=== PATIENT | male | born 1980 | race Two or more races ===

== ENCOUNTER 2016-12-06 03:58 | Emergency (ER) | payer SELFPAY ==
[~2016-12-06] VITALS: Ht 175.3 cm; Wt 68.0 kg
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
[2016-12-06] MEDS ORDERED: ONDANSETRON HCL/PF - ER 4 MG/2 ML VIAL IV ONE (04:30)
[2016-12-06] MEDS ORDERED: HYDROMORPHONE INJ 2 MG/ML DISP.SYRIN IV ONE (04:30)
[2016-12-06] MEDS ORDERED: HYDROMORPHONE 1 MG/1 ML DISP.SYRIN ONE (04:40)
--- NOTE | 2016-12-06 04:40 | NUR ---
started a sl on the right hand g18.
[2016-12-06] MEDS ORDERED: IV NS 0.9% 500 ML IV ONE (04:41)
[2016-12-06] MEDS ORDERED: ONDANSETRON HCL/PF 4 MG/2 ML VIAL ONE (04:41)
[2016-12-06] MEDS ORDERED: IV SET PRIMARY 1 EA INFUS.SET MC ONE (04:41)
[2016-12-06] MEDS ORDERED: ETOMIDATE 2 MG/ML VIAL ONE (04:44)
--- NOTE | 2016-12-06 04:50 | NUR ---
Received order by Dr Resendez for IV bolus of 500cc NS noted.
--- NOTE | 2016-12-06 04:52 | NUR ---
medicated patient as ordered by Dr Resendez.
--- NOTE | 2016-12-06 05:02 | NUR ---
tech at bedside to xr right shoulder.
[2016-12-06] MEDS: ETOMIDATE 2 MG/ML VIAL IV ONE ×2 (05:13→06:06)
--- NOTE | 2016-12-06 05:25 | NUR ---
At 0513 Etomidate 5mg IVP was given per Dr Resendez order and Dr Resendez started close reduction procedure on the right shoulder under moderate sedation. RT, myself and EMT at bedside. Patient was with high flow O2 cannula saturating well at 98%, maintained patent airway, breathing even and unlabored. At 0518 another Etomidate 5mg IVP was given. At 0520 procedure was done. Patient vital signs remained stable. Cardiac and vital signs monitoring per protocol. At 0525 patient is awake but drowsy, oriented x2 (name and hospital).
--- NOTE | 2016-12-06 05:26 | NUR ---
Sling was placed on the right forearm to immobilize right shoulder. Patient is able to slightly move fingers on the right hand, warm to touch and cap refill <3 secs.
--- NOTE | 2016-12-06 05:28 | NUR ---
tech at bedside for xr on the right shoulder post closed reduction.
--- NOTE | 2016-12-06 05:40 | NUR ---
rt at bedside for conscience sedation pt placed on n/c 2l spo2 remained 99-100% throughout procedure nad 15 min post. pt alert and orientated
--- NOTE | 2016-12-06 05:49 | NUR ---
Dr Resendez at bedside for reeval.
--- NOTE | 2016-12-06 07:09 | NUR ---
IV removed. Catheter intact and site benign. Pressure and 4x4 applied to site. No bleeding noted. Patient discharged to home in stable condition. Written and verbal after care instructions given. Patient verbalizes understanding of instruction. ambulatory with a steady gait noted. pt aaox4 no acute distress noted, resp even and unlabored. advice pt not to drive or operate any machinery due to pt was given narcotic medicine. pt verbalize understanding. R shoulder immobilizer in place upon discharge.
[2016-12-06 07:12] VITALS: BP 116/62
== END 2016-12-06 07:13 | disposition home or self-care (01) ==
LOC: ER 04:04
DX: S43.001A Unspecified subluxation of right shoulder joint, initial encounter (principal); Z88.0 Allergy status to penicillin; Y08.89XA Assault by other specified means, initial encounter; Y93.89 Activity, other specified; Y92.89 Other specified places as the place of occurrence of the external cause; Y99.8 Other external cause status
CPT/HCPCS: 23650; 73030 ×2; 96374; 96375; 99152; 99285; A4606; J1170; J2405; J3490; J7040; Z7610

== ENCOUNTER 2017-03-09 01:50 | Emergency (ER) | payer OTHER ==
[~2017-03-09] VITALS: Ht 175.3 cm; Wt 70.3 kg
--- NOTE | 2017-03-09 02:04 | NUR ---
BIBRA 878 C/O RIGHT SHOULDER PAIN S/P SLIP AND FALL. PT DENIES KO RIGHT SHOULDER DEFORMITY NOTED. PT AOX4 RR EVEN AND UNLABORED. NO SOB NOTED. NO NVD AT THIS TIME. PT PLACED ON MONITOR WAITING FOR MD CLEMONS. 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
--- NOTE | 2017-03-09 02:04 | NUR ---
DR. LYNCH AT BEDSIDE FOR EVAL.
--- NOTE | 2017-03-09 02:13 | NUR ---
XRAY AT BEDSIDE
--- NOTE | 2017-03-09 02:22 | NUR ---
pt refused to provide urine. risk and benefits explained x3. pt strongly refused at this time. Patient does not wish to proceed with medical care recommended by Dr. Albert . Patient given information related to possible complications, up to and including , which could occur as a result of leaving the hospital at this time. Patient verbalizes understanding of risks involved due to leaving against medical advice. Patient has signed AMA form.
[2017-03-09 02:25] VITALS: BP 108/50
== END 2017-03-09 02:25 | disposition left against medical advice (07) ==
LOC: ER 01:52
DX: M25.511 Pain in right shoulder (principal); G40.909 Epilepsy, unspecified, not intractable, without status epilepticus; F31.9 Bipolar disorder, unspecified; Z88.0 Allergy status to penicillin
CPT/HCPCS: 73030; 99284; A4606; Z7610

== ENCOUNTER 2017-05-11 14:59 | Emergency (ER) | payer OTHER ==
[~2017-05-11] VITALS: Ht 170.2 cm; Wt 68.0 kg
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
[2017-05-11] MEDS ORDERED: ONDANSETRON HCL/PF 4 MG/2 ML VIAL ONE (15:44)
[2017-05-11] MEDS ORDERED: MORPHINE SULFATE INJ 4 MG/ML DISP.SYRIN ONE (15:44)
[2017-05-11 15:55] LABS: BASOPHILS % (AUTO) 0.5 % (0.0-2.0); EOSINOPHILS # (AUTO) 0.1 /CMM (0.0-0.7); EOSINOPHILS % (AUTO) 0.6 % (0.0-6.0); HEMATOCRIT 39 % (39-51); HEMOGLOBIN 12.7 g/dL (13.5-17.5); LYMPHOCYTES # (AUTO) 0.7 /CMM (0.8-4.8); LYMPHOCYTES % (AUTO) 7.8 % (20.0-44.0); MEAN CORPUSCULAR HEMOGLOBIN 27 PG (26.0-33.0); MEAN CORPUSCULAR HGB CONC 33 g/dl (31.0-36.0); MEAN CORPUSCULAR VOLUME 83 fL (80-96); MONOCYTES # (AUTO) 0.8 /CMM (0.1-1.30); MONOCYTES % (AUTO) 9.1 % (2.0-12.0); NEUTROPHILS # (AUTO) 7.2 /CMM (1.8-8.9); PLATELET COUNT (AUTO) 232 /CMM (150-450); RDW COEFFICIENT OF VARIATION 14.2 (11.5-15.0); RED BLOOD CELL COUNT(AUTO) 4.69 MIL/uL (4.5-6.0); WHITE BLOOD COUNT (AUTO) 8.8 K/uL (4.3-11.0)
[2017-05-11] MEDS ORDERED: CLINDAMYCIN 900 MG in IV D5W 100 ML IV ONE (16:00)
[2017-05-11] MEDS ORDERED: IV NS 0.9% 1,000 ML BAG IV ONE (16:00)
[2017-05-11] MEDS ORDERED: ONDANSETRON HCL/PF 4 MG/2 ML VIAL IVP ONE (16:00)
[2017-05-11] MEDS ORDERED: MORPHINE SULFATE INJ 2 MG/ML DISP.SYRIN IV ONE (16:00)
[2017-05-11 16:10] LABS: ALBUMIN 3.9 g/dL (3.4-5.0); BILIRUBIN,DIRECT 0.2 mg/dL (0.0-0.2); CALCIUM, SERUM 9.1 mg/dL (8.5-10.1); CREATININE 0.8 mg/dL (0.6-1.3); POTASSIUM 3.8 mmol/L (3.5-5.1); TOTAL PROTEIN, SERUM 7.4 g/dL (6.4-8.2)
--- NOTE | 2017-05-11 16:57 | NUR ---
IV removed. Catheter intact and site benign. Pressure and 4x4 applied to site. No bleeding noted.
--- NOTE | 2017-05-11 16:58 | NUR ---
Patient discharged to home in stable condition. Written and verbal after care instructions given. Patient verbalizes understanding of instruction.
[2017-05-11 16:59] VITALS: BP 125/85
== END 2017-05-11 17:15 | disposition home or self-care (01) ==
LOC: ER 15:00
DX: L02.416 Cutaneous abscess of left lower limb (principal); F15.10 Other stimulant abuse, uncomplicated; R74.8 Abnormal levels of other serum enzymes; F11.10 Opioid abuse, uncomplicated; G40.909 Epilepsy, unspecified, not intractable, without status epilepticus; F31.9 Bipolar disorder, unspecified; Z88.0 Allergy status to penicillin
CPT/HCPCS: 36415; 80048; 80076; 83690; 85025; 96365; 96375; 99284; A4606; J2270; J2405; J3490; J7030; J7060; Z7610

== ENCOUNTER 2017-05-17 00:34 | Emergency (ER) | payer OTHER ==
[~2017-05-17] VITALS: Ht 172.7 cm; Wt 72.6 kg
--- NOTE | 2017-05-17 00:58 | NUR ---
Called for triage, no one in WR. no answer.
[2017-05-17] MEDS ORDERED: VANCOMYCIN 1 GM in IV D5W 250 ML IV ONE (02:00)
--- NOTE | 2017-05-17 02:12 | NUR ---
pt with multiple abscess over L thigh s/t heroin injections, a/o x4, v/s stable, c/o pain 4/10 at injection sites, iv inserted, blood drawn, pt beeing monitored.
[2017-05-17 02:25] LABS: BASOPHILS # (AUTO) 0.1 /CMM (0.0-0.2); BASOPHILS % (AUTO) 0.8 % (0.0-2.0); EOSINOPHILS # (AUTO) 0.4 /CMM (0.0-0.7); EOSINOPHILS % (AUTO) 4.6 % (0.0-6.0); HEMATOCRIT 45 % (39-51); LYMPHOCYTES # (AUTO) 2.9 /CMM (0.8-4.8); LYMPHOCYTES % (AUTO) 34.2 % (20.0-44.0); MEAN CORPUSCULAR HEMOGLOBIN 28 PG (26.0-33.0); MEAN CORPUSCULAR HGB CONC 34 g/dl (31.0-36.0); MEAN CORPUSCULAR VOLUME 83 fL (80-96); MONOCYTES # (AUTO) 0.6 /CMM (0.1-1.30); MONOCYTES % (AUTO) 6.7 % (2.0-12.0); NEUTROPHILS # (AUTO) 4.5 /CMM (1.8-8.9); NEUTROPHILS % (AUTO) 53.7 % (43.0-81.0); PLATELET COUNT (AUTO) 274 /CMM (150-450); RDW COEFFICIENT OF VARIATION 15.1 (11.5-15.0); RED BLOOD CELL COUNT(AUTO) 5.41 MIL/uL (4.5-6.0); WHITE BLOOD COUNT (AUTO) 8.4 K/uL (4.3-11.0)
[2017-05-17] MEDS ORDERED: VANCOMYCIN 1 GM VIAL ONE (02:54)
[2017-05-17 03:06] LABS: CALCIUM, SERUM 8.7 mg/dL (8.5-10.1); CREATININE 0.7 mg/dL (0.6-1.3); POTASSIUM 3.7 mmol/L (3.5-5.1)
--- NOTE | 2017-05-17 03:12 | NUR ---
[facility] DR. YANELIS GALICIA.
--- NOTE | 2017-05-17 03:42 | NUR ---
TURNED ADMISSION PAPERWORK TO SILAS IN THE ADMITTING DEPT AND SHE STATED "PT'S INSURANCE IPA IS NOT THE KIND OF IPA WHERE THEY HAVE TO CALL FOR TRANSFER TO ANOTHER HOSPITAL AND SO PT CAN BE ADMITTED HERE". PANEL WAS CALLED AND PER DR. LYNCH "DR. HILARIO REFUSED TO ADMIT PT AND STATES PT SHOULD BE PLACED ON ORAL ANTIBIOTICS AND DISCHARGED HOME". JESSICA SNYDER NOTIFIED.
--- NOTE | 2017-05-17 04:18 | NUR ---
IV removed. Catheter intact and site benign. Pressure and 4x4 applied to site. No bleeding noted.Patient discharged to home in stable condition. Written and verbal after care instructions given. Patient verbalizes understanding of instruction. pt ambulatory with a steady gait.
[2017-05-17 04:20] VITALS: BP 117/64
== END 2017-05-17 04:20 | disposition home or self-care (01) ==
LOC: ER 00:44 → MED 03:33 → UNDOADMIN 03:33 → ER 04:20
DX: L03.116 Cellulitis of left lower limb (principal); L02.212 Cutaneous abscess of back [any part, except buttock and flank]; G40.909 Epilepsy, unspecified, not intractable, without status epilepticus; Z88.0 Allergy status to penicillin
CPT/HCPCS: 36415; 80048; 83605; 85025; 87040 ×2; 96365; 99284; A4606; J3370; Z7610

== ENCOUNTER 2017-06-01 00:01 | Emergency (ER) | payer OTHER ==
[~2017-06-01] VITALS: Ht 167.6 cm; Wt 63.5 kg
--- NOTE | 2017-06-01 00:10 | NUR ---
TO BED 7 A 37 YO MALE BIBSELF AND REPORTS OF "DISLOCATED RT SHOULDER." DISTAL CMS INTACT. VSS. NAD NOTED. NONDIAPHORETIC. COMFORT MEASURES RENDERED. AWAITING FOR ER MD CLEMONS.
--- NOTE | 2017-06-01 00:18 | NUR ---
xr at bedside.
--- NOTE | 2017-06-01 03:00 | NUR ---
STARTED A SALINE LOCK ON THE LEFT SHOULDER (NEAR AXILLARY) G22.
[2017-06-01 03:18] LABS: BASOPHILS # (AUTO) 0.1 /CMM (0.0-0.2); BASOPHILS % (AUTO) 1.5 % (0.0-2.0); EOSINOPHILS # (AUTO) 0.5 /CMM (0.0-0.7); EOSINOPHILS % (AUTO) 5.5 % (0.0-6.0); HEMATOCRIT 35 % (39-51); HEMOGLOBIN 11.5 g/dL (13.5-17.5); LYMPHOCYTES # (AUTO) 1.5 /CMM (0.8-4.8); LYMPHOCYTES % (AUTO) 17.8 % (20.0-44.0); MEAN CORPUSCULAR HEMOGLOBIN 28 PG (26.0-33.0); MEAN CORPUSCULAR HGB CONC 33 g/dl (31.0-36.0); MEAN CORPUSCULAR VOLUME 84 fL (80-96); MONOCYTES # (AUTO) 0.6 /CMM (0.1-1.30); MONOCYTES % (AUTO) 7.8 % (2.0-12.0); NEUTROPHILS # (AUTO) 5.6 /CMM (1.8-8.9); NEUTROPHILS % (AUTO) 67.4 % (43.0-81.0); PLATELET COUNT (AUTO) 253 /CMM (150-450); RDW COEFFICIENT OF VARIATION 15.2 (11.5-15.0); RED BLOOD CELL COUNT(AUTO) 4.19 MIL/uL (4.5-6.0); WHITE BLOOD COUNT (AUTO) 8.3 K/uL (4.3-11.0)
[2017-06-01 03:29] LABS: CALCIUM, SERUM 8.6 mg/dL (8.5-10.1); CREATININE 0.6 mg/dL (0.6-1.3); POTASSIUM 4.1 mmol/L (3.5-5.1)
[2017-06-01 03:36] LABS: INR 0.94 (0.87-1.13)
--- NOTE | 2017-06-01 03:57 | NUR ---
patient is sleeping at this time and does not want to be bothered. will continue to monitor.
--- NOTE | 2017-06-01 04:56 | NUR ---
Pt accepted to [facility] by Dr Alicia. Bed 241-a. # for report [phone]. Auth for transport [phone]
--- NOTE | 2017-06-01 04:59 | NUR ---
[facility] called for transport. ETA [id number]
--- NOTE | 2017-06-01 04:59 | NUR ---
PATIENT SLEEPING COMFORTABLY AT THIS TIME.
--- NOTE | 2017-06-01 05:07 | NUR ---
Report given to Denice ARTHUR at [facility] for transfer and rekha.
--- NOTE | 2017-06-01 06:50 | NUR ---
Report given to [facility] ski patrol officer for transfer and rekha.
[2017-06-01 06:51] VITALS: BP 108/59
== END 2017-06-01 06:55 | disposition short-term general hospital (02) ==
LOC: ER 00:04
DX: S43.024A Posterior dislocation of right humerus, initial encounter (principal); S42.211A Unspecified displaced fracture of surgical neck of right humerus, initial encounter for closed fracture; F15.10 Other stimulant abuse, uncomplicated; F11.10 Opioid abuse, uncomplicated; F19.10 Other psychoactive substance abuse, uncomplicated; G40.909 Epilepsy, unspecified, not intractable, without status epilepticus; F31.9 Bipolar disorder, unspecified; Z88.0 Allergy status to penicillin; X58.XXXA Exposure to other specified factors, initial encounter; Y93.89 Activity, other specified; Y92.89 Other specified places as the place of occurrence of the external cause; Y99.9 Unspecified external cause status
CPT/HCPCS: 36415; 71010; 73020; 73030; 80048; 80305; 85025; 85730; 93005; 99285; A4606; Z7610

== ENCOUNTER 2017-07-01 23:23 | Emergency (ER) | payer OTHER ==
[~2017-07-01] VITALS: Ht 175.3 cm; Wt 72.6 kg
[2017-07-01 23:26] VITALS: BP 105/60
== END 2017-07-01 23:55 | disposition home or self-care (01) ==
LOC: ER 23:26
DX: S43.084A Other dislocation of right shoulder joint, initial encounter (principal); G40.909 Epilepsy, unspecified, not intractable, without status epilepticus; F31.9 Bipolar disorder, unspecified; Z88.0 Allergy status to penicillin; X58.XXXA Exposure to other specified factors, initial encounter; Y93.89 Activity, other specified; Y92.89 Other specified places as the place of occurrence of the external cause; Y99.8 Other external cause status
CPT/HCPCS: 23650; 99284; A4606; Z7610

== ENCOUNTER 2017-07-19 02:01 | Emergency (ER) | payer OTHER ==
[~2017-07-19] VITALS: Ht 152.4 cm; Wt 63.5 kg
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
[2017-07-19 03:07] VITALS: BP 126/73
== END 2017-07-19 03:09 | disposition home or self-care (01) ==
LOC: ER 02:07
DX: M25.511 Pain in right shoulder (principal); M21.921 Unspecified acquired deformity of right upper arm; G40.909 Epilepsy, unspecified, not intractable, without status epilepticus; F31.9 Bipolar disorder, unspecified; Z88.0 Allergy status to penicillin
CPT/HCPCS: 73030-TC; A4606; Z7610

== ENCOUNTER 2017-07-20 01:04 | Emergency (ER) | payer OTHER ==
[~2017-07-20] VITALS: Ht 167.6 cm; Wt 65.8 kg
--- NOTE | 2017-07-20 02:05 | NUR ---
CALLED FOR ROOM ASSIGNMENT; NOT IN LOBBY
[2017-07-20 02:18] LABS: CALCIUM, SERUM 9.5 mg/dL (8.5-10.1); CARBON DIOXIDE 26 mmol/L (21-32); CHLORIDE 98 mmol/L (98-107); CREATININE 0.6 mg/dL (0.6-1.3); GLUCOSE 92 mg/dL (74-106); POTASSIUM 4.5 mmol/L (3.5-5.1); SODIUM SERUM 133 mmol/L (136-145); UREA NITROGEN, BLOOD 11 mg/dL (7-18)
[2017-07-20 02:24] LABS: ACETAMINOPHEN 0 ug/ml (10-30); ALANINE AMINOTRANSFERASE 32 U/L (12-78); ALCOHOL, BLOOD < 3 mg/dL (0-0); ALKALINE PHOSPHATASE 179 U/L (46-116); ASPARTATE AMINOTRANSFERASE 38 U/L (15-37); BILIRUBIN,TOTAL 0.4 mg/dL (0.2-1.0); SALICYLATE 2.6 mg/dL (2.8-20.0); TOTAL PROTEIN, SERUM 8.5 g/dL (6.4-8.2)
--- NOTE | 2017-07-20 02:24 | NUR ---
NOT IN LOBBY FOR ROOM ASSIGNMEN
[2017-07-20 03:39] LABS: APPEARANCE,URINE CLEAR (CLEAR); BILIRUBIN,URINE NEGATIVE (NEGATIVE); BLOOD, URINE NEGATIVE Ery/uL (NEGATIVE); COLOR,URINE YELLOW (YELLOW); KETONES,URINE NEGATIVE (NEGATIVE); LEUKOCYTE ESTERASE ,URINE NEGATIVE (NEGATIVE); NITRITE, URINE NEGATIVE (NEGATIVE); PROTEIN,URINE NEGATIVE (NEGATIVE); UGLUCOSE NEGATIVE (NEGATIVE); UROBILINOGEN,URINE 0.2 EU/dL (0.2)
[2017-07-20 04:43] VITALS: BP 120/74
== END 2017-07-20 04:44 | disposition home or self-care (01) ==
LOC: ER 01:05
DX: F11.10 Opioid abuse, uncomplicated (principal); F15.10 Other stimulant abuse, uncomplicated; F19.10 Other psychoactive substance abuse, uncomplicated; F31.9 Bipolar disorder, unspecified; G40.909 Epilepsy, unspecified, not intractable, without status epilepticus; F10.10 Alcohol abuse, uncomplicated; Z88.0 Allergy status to penicillin; Z98.890 Other specified postprocedural states
CPT/HCPCS: 36415; 80048-TC; 80076-TC; 80305; 81000-TC; A4606; G0480; Z7610

== ENCOUNTER 2017-08-20 06:03 | Emergency (ER) | payer OTHER ==
[~2017-08-20] VITALS: Ht 172.7 cm; Wt 56.7 kg
--- NOTE | 2017-08-20 06:08 | NUR ---
PT AMBULATORY TO ER BED 7, C/O CONSTIPATION X 4 DAYS. PT STATES HE IS A HEROIN ADDICT. VSS/RESP EVEN UNLABORED/NAD NOTED/SKIN WARM AND DRY/DENIES N-V/AOX4. AWAITING MD CLEMONS.
[2017-08-20 06:11] VITALS: BP 149/81
--- NOTE | 2017-08-20 06:12 | NUR ---
PT PLACED ON VS MONITOR.
== END 2017-08-20 06:41 | disposition home or self-care (01) ==
LOC: ER 06:05
DX: K59.00 Constipation, unspecified (principal); G40.909 Epilepsy, unspecified, not intractable, without status epilepticus; F17.210 Nicotine dependence, cigarettes, uncomplicated; F11.10 Opioid abuse, uncomplicated; F32.9 Major depressive disorder, single episode, unspecified; F15.10 Other stimulant abuse, uncomplicated; Z88.0 Allergy status to penicillin
CPT/HCPCS: 99281; 99406; A4606; Z7610; Z7502

== ENCOUNTER 2017-08-24 20:36 | Emergency (ER) | payer OTHER ==
[~2017-08-24] VITALS: Ht 175.3 cm; Wt 68.0 kg
--- NOTE | 2017-08-24 20:51 | NUR ---
pt to er bb ra for auditory hallucinations s/p using meth. no immediate signs of distress noted. pt vital signs stable. pt to er bed, changed into gown and connected to monitor. will cont to monitor pt.
[2017-08-24 21:44] LABS: BASOPHILS # (AUTO) 0.4 /CMM (0.0-0.2); BASOPHILS % (AUTO) 3.7 % (0.0-2.0); EOSINOPHILS # (AUTO) 0.2 /CMM (0.0-0.7); EOSINOPHILS % (AUTO) 1.5 % (0.0-6.0); HEMATOCRIT 41 % (39-51); HEMOGLOBIN 13.6 g/dL (13.5-17.5); LYMPHOCYTES # (AUTO) 2.3 /CMM (0.8-4.8); MEAN CORPUSCULAR HEMOGLOBIN 27 PG (26.0-33.0); MEAN CORPUSCULAR HGB CONC 33 g/dl (31.0-36.0); MEAN CORPUSCULAR VOLUME 82 fL (80-96); MONOCYTES # (AUTO) 0.8 /CMM (0.1-1.30); MONOCYTES % (AUTO) 6.6 % (2.0-12.0); NEUTROPHILS # (AUTO) 7.7 /CMM (1.8-8.9); NEUTROPHILS % (AUTO) 68.2 % (43.0-81.0); PLATELET COUNT (AUTO) 118 /CMM (150-450); RDW COEFFICIENT OF VARIATION 13.1 (11.5-15.0); RED BLOOD CELL COUNT(AUTO) 5.01 MIL/uL (4.5-6.0); WHITE BLOOD COUNT (AUTO) 11.4 K/uL (4.3-11.0)
[2017-08-24 22:06] LABS: CALCIUM, SERUM 9.9 mg/dL (8.5-10.1); CARBON DIOXIDE 25 mmol/L (21-32); CHLORIDE 104 mmol/L (98-107); CREATININE 0.7 mg/dL (0.6-1.3); GLUCOSE 100 mg/dL (74-106); SODIUM SERUM 139 mmol/L (136-145); UREA NITROGEN, BLOOD 8 mg/dL (7-18)
[2017-08-24 22:11] LABS: ALANINE AMINOTRANSFERASE 35 U/L (12-78); ALBUMIN 4.3 g/dL (3.4-5.0); ALCOHOL, BLOOD < 3 mg/dL (0-0); ALKALINE PHOSPHATASE 157 U/L (46-116); ASPARTATE AMINOTRANSFERASE 29 U/L (15-37); BAND % (MANUAL) 2 % (0.0-5.0); BILIRUBIN,DIRECT 0.1 mg/dL (0.0-0.2); BILIRUBIN,TOTAL 0.4 mg/dL (0.2-1.0); EOSINOPHILS % (MANUAL) 2 % (0-4); LYMPHOCYTES % (MANUAL) 20 % (16-48); MONOCYTES % (MANUAL) 6 % (0-11.0); NEUTROPHILS % (MANUAL) 70 (42-76); SALICYLATE 2.9 mg/dL (2.8-20.0); TOTAL PROTEIN, SERUM 8.5 g/dL (6.4-8.2)
[2017-08-24 22:13] LABS: ACETAMINOPHEN 0 ug/ml (10-30)
--- NOTE | 2017-08-25 | NUR ---
pt resting in gurney. no signs of distress noted. pt vital signs stable. tato cont to monitor pt.
[2017-08-25 00:22] LABS: APPEARANCE,URINE SL CLOUDY (CLEAR); BILIRUBIN,URINE NEGATIVE (NEGATIVE); BLOOD, URINE NEGATIVE Ery/uL (NEGATIVE); COLOR,URINE YELLOW (YELLOW); KETONES,URINE NEGATIVE (NEGATIVE); LEUKOCYTE ESTERASE ,URINE NEGATIVE (NEGATIVE); NITRITE, URINE NEGATIVE (NEGATIVE); PH,URINE 7.5 (5.0-8.0); PROTEIN,URINE NEGATIVE (NEGATIVE); UGLUCOSE NEGATIVE (NEGATIVE); UROBILINOGEN,URINE 0.2 EU/dL (0.2)
--- NOTE | 2017-08-25 07:15 | NUR ---
pt ok to discharge per dr winchester. pt denies si/hi. Patient discharged to home in stable condition. Written and verbal after care instructions given. Patient verbalizes understanding of instruction.Patient is awake and alert to self, day, and place. pt ambulatory with a steady gait
[2017-08-25 08:26] VITALS: BP 128/79
== END 2017-08-25 07:15 | disposition home or self-care (01) ==
LOC: ER 20:37
DX: F15.10 Other stimulant abuse, uncomplicated (principal); R45.851 Suicidal ideations; Z88.0 Allergy status to penicillin; F17.200 Nicotine dependence, unspecified, uncomplicated; Z60.2 Problems related to living alone
CPT/HCPCS: 36415; 80048; 80076; 80305; 80329; 81001; 85025; 99284; A4606; G0480 ×2; Z7610; 81000-TC

== ENCOUNTER 2017-09-22 03:17 | Emergency (ER) | payer OTHER ==
[~2017-09-22] VITALS: Ht 175.3 cm; Wt 72.6 kg
--- NOTE | 2017-09-22 06:14 | NUR ---
alyssa bolton at bedside to kye astudillo.
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
--- NOTE | 2017-09-22 06:21 | NUR ---
er md at bedside for r shoulder reduction. pt tolerating procedure at this time.
[2017-09-22] MEDS ORDERED: LIDOCAINE /MPF 1% VIAL 5 ML VIAL ONE (06:29)
[2017-09-22] MEDS ORDERED: LIDOCAINE /MPF 1% VIAL 5 ML VIAL TP ONE (06:30)
--- NOTE | 2017-09-22 07:13 | NUR ---
report given to am shift anmol john
--- NOTE | 2017-09-22 08:15 | NUR ---
CONSENT FOR RIGHT SHOULDER CLOSED REDUCTION UNDER MODERATE SEDATION SIGNED BY PT. VERBALIZES UNDERSTANDING OF THE PROCEDURE. ALL QUESTIONS ANSWERED.
[2017-09-22] MEDS ORDERED: PROPOFOL 40 ML IV ONE (08:19)
[2017-09-22] MEDS ORDERED: PROPOFOL 200 MG/20 ML VIAL IV ONE (08:30)
[2017-09-22] MEDS ORDERED: IV NS 0.9% 1,000 ML BAG IV ONE (08:30)
--- NOTE | 2017-09-22 08:36 | NUR ---
AT FOR UX GUIDED IV INSERTION.
[2017-09-22] MEDS ORDERED: KETOROLAC TROMETHAMINE INJ 30 MG/ML VIAL ONE (08:42)
[2017-09-22] MEDS ORDERED: KETOROLAC TROMETHAMINE INJ 30 MG/ML VIAL IV ONE (09:00)
--- NOTE | 2017-09-22 10:11 | NUR ---
Patient discharged to home in stable condition. Written and verbal after care instructions given. Patient verbalizes understanding of instruction.IV removed. Catheter intact and site benign. Pressure and 4x4 applied to site. No bleeding noted.
[2017-09-22 10:12] VITALS: BP 124/80
== END 2017-09-22 10:13 | disposition home or self-care (01) ==
LOC: ER 03:19
DX: S43.004A Unspecified dislocation of right shoulder joint, initial encounter (principal); F11.20 Opioid dependence, uncomplicated; Q89.8 Other specified congenital malformations; F10.10 Alcohol abuse, uncomplicated; F17.200 Nicotine dependence, unspecified, uncomplicated; F15.10 Other stimulant abuse, uncomplicated; Z88.0 Allergy status to penicillin; X58.XXXA Exposure to other specified factors, initial encounter; Y93.89 Activity, other specified; Y92.89 Other specified places as the place of occurrence of the external cause; Y99.8 Other external cause status
CPT/HCPCS: 23650; 36569; 73030; 96361; 96374; 99152; 99285; 99406; A4606; J1885; J2704; J3490; J7040; Z7610

== ENCOUNTER 2017-10-20 21:34 | Emergency (ER) | payer OTHER ==
[~2017-10-20] VITALS: Ht 175.3 cm; Wt 68.0 kg
[2017-10-20 21:42] VITALS: BP 140/110
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
--- NOTE | 2017-10-20 23:34 | NUR ---
PT MOVED TO ER BED 5 TO SET UP FOR MODERATE SEDATION FOR R SHOULDER REDUCTION. PT SIGNED INFORMED CONSENT FORM.
--- NOTE | 2017-10-20 23:39 | NUR ---
NURSE OBSERVED SYRINGE WITH WHAT PT STATED WAS "HEROINE". PT WAS TOLD TO DISCARD SYRINGE, RISK AND BENEFITS EXPLAINED. PT BECAME VERBALLY AGGRESSIVE AND REFUSED TO DISCARD SYRINGE. AWARE. PT STATES "I AM LEAVING, WILL TAKE MY DRUGS AND GO TO ANOTHER HOSPITAL". Patient does not wish to proceed with medical care recommended by Dr. Stapleton. Patient given information related to possible complications, up to and including , which could occur as a result of leaving the hospital at this time. Patient verbalizes understanding of risks involved due to leaving against medical advice. Patient refused to signed AMA form, aware. PT ESCORTED OUT TO LOBBY PER SECURITY.
== END 2017-10-20 23:51 | disposition left against medical advice (07) ==
LOC: ER 21:36
DX: S43.004A Unspecified dislocation of right shoulder joint, initial encounter (principal); Q89.8 Other specified congenital malformations; S42.291A Other displaced fracture of upper end of right humerus, initial encounter for closed fracture; F10.10 Alcohol abuse, uncomplicated; F17.200 Nicotine dependence, unspecified, uncomplicated; F15.10 Other stimulant abuse, uncomplicated; F11.10 Opioid abuse, uncomplicated; Z60.2 Problems related to living alone; Z53.20 Procedure and treatment not carried out because of patient's decision for unspecified reasons; Z88.0 Allergy status to penicillin; W01.0XXA Fall on same level from slipping, tripping and stumbling without subsequent striking against object, initial encounter; Y93.89 Activity, other specified; Y92.89 Other specified places as the place of occurrence of the external cause; Y99.8 Other external cause status
CPT/HCPCS: 73030-TC; A4606; J7030; Z7610

== ENCOUNTER 2017-10-26 00:54 | Emergency (ER) | payer OTHER ==
[~2017-10-26] VITALS: Ht 172.7 cm; Wt 59.0 kg
[2017-10-26 00:54] VITALS: BP 123/80
--- NOTE | 2017-10-26 01:00 | NUR ---
PT WAS TOLD TO GO TO THE WAITING ROOM BECAUSE THERE WAS NO BED AVAILBLE FOR HIM INSIDE, PATIENT ADVISED HIS POCKETS WOULD BE SEARCHED PRIOR TO COMING IN, LAST TIME PATIENT WAS HERE HE HAD 3 HEROINE NEEDLES ON HIM AND NURSE WAS ALMOST STUCK, SECURITY AND MD MADE AWARE
--- NOTE | 2017-10-26 01:30 | NUR ---
CALLED IN LOBBY NO ANSWER
--- NOTE | 2017-10-26 02:45 | NUR ---
CALLED FOR PT IN WR. NO RESPONSE.
--- NOTE | 2017-10-26 02:50 | NUR ---
ADVISED BY ADMITTING STAFF PATIENT LEFT
== END 2017-10-26 03:48 | disposition left against medical advice (07) ==
LOC: ER 00:56
DX: Z53.21 Procedure and treatment not carried out due to patient leaving prior to being seen by health care provider (principal)
CPT/HCPCS: A4606; Z7610

== ENCOUNTER 2017-11-02 23:09 | Emergency (ER) | payer OTHER ==
[~2017-11-02] VITALS: Ht 177.8 cm; Wt 59.0 kg
[2017-11-02 23:09] VITALS: BP 137/86
== END 2017-11-03 00:19 | disposition left against medical advice (07) ==
LOC: ER 23:10
DX: Z53.21 Procedure and treatment not carried out due to patient leaving prior to being seen by health care provider (principal)
CPT/HCPCS: A4606; Z7610

== ENCOUNTER 2017-11-12 03:50 | Emergency (ER) | payer OTHER | END 2017-11-12 05:14 | disposition left against medical advice (07) | LOC: ER 03:51 | DX: Z53.21 Procedure and treatment not carried out due to patient leaving prior to being seen by health care provider (principal) ==

== ENCOUNTER 2017-11-14 02:12 | Emergency (ER) | payer OTHER ==
[~2017-11-14] VITALS: Ht 172.7 cm; Wt 65.8 kg
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
--- NOTE | 2017-11-14 05:13 | NUR ---
PT ASLEEP, NO ACUTE DISTRESS NOTED, RESP EVEN AND UNLABORED. NO PAIN OR DISCOMFORT NOTED. CALL LIGHT WITHIN REACH.
--- NOTE | 2017-11-14 05:31 | NUR ---
Patient discharged to home in stable condition. Written and verbal after care instructions given. Patient verbalizes understanding of instruction. ambulatory with a steady gait. instructed pt not to drive. pt verbalizes understanding.
[2017-11-14 05:33] VITALS: BP 122/59
== END 2017-11-14 05:33 | disposition home or self-care (01) ==
LOC: ER 02:17
DX: F11.10 Opioid abuse, uncomplicated (principal); G89.29 Other chronic pain; F17.200 Nicotine dependence, unspecified, uncomplicated; Z88.0 Allergy status to penicillin
CPT/HCPCS: A4606; Z7610

== ENCOUNTER 2018-01-03 20:29 | Emergency (ER) | payer OTHER ==
[~2018-01-03] VITALS: Ht 154.9 cm; Wt 59.9 kg
--- NOTE | 2018-01-03 21:24 | NUR ---
URINE SAMPLE OBTAINED.
[2018-01-03 21:51] LABS: APPEARANCE,URINE CLEAR (CLEAR); BILIRUBIN,URINE NEGATIVE (NEGATIVE); BLOOD, URINE NEGATIVE Ery/uL (NEGATIVE); COLOR,URINE YELLOW (YELLOW); KETONES,URINE 1+ (NEGATIVE); LEUKOCYTE ESTERASE ,URINE NEGATIVE (NEGATIVE); NITRITE, URINE NEGATIVE (NEGATIVE); PROTEIN,URINE NEGATIVE (NEGATIVE); UGLUCOSE NEGATIVE (NEGATIVE); UROBILINOGEN,URINE 0.2 EU/dL (0.2)
[2018-01-03 22:18] LABS: BACTERIA,URINE Rare /HPF (None Seen); RBC,URINE 0-2 /HPF (0-2); SQUAMOUS EPITHELIAL CELL,UR Rare /HPF (None Seen); WBC,URINE NONE SEEN /HPF (0-3)
--- NOTE | 2018-01-03 22:22 | NUR ---
DR STARR IS AT THE BEDSIDE SPEAKING TO THE PT.
[2018-01-03 22:35] VITALS: BP 107/57
[2018-01-03 22:39] LABS: BASOPHILS % (AUTO) 0.4 % (0.0-2.0); EOSINOPHILS % (AUTO) 1.9 % (0.0-6.0); HEMATOCRIT 38 % (39-51); HEMOGLOBIN 12.9 g/dL (13.5-17.5); LYMPHOCYTES # (AUTO) 1.5 /CMM (0.8-4.8); LYMPHOCYTES % (AUTO) 16.4 % (20.0-44.0); MEAN CORPUSCULAR HGB CONC 34 g/dl (31.0-36.0); MEAN CORPUSCULAR VOLUME 80 fL (80-96); MONOCYTES # (AUTO) 0.7 /CMM (0.1-1.30); NEUTROPHILS # (AUTO) 6.7 /CMM (1.8-8.9); NEUTROPHILS % (AUTO) 73.3 % (43.0-81.0); PLATELET COUNT (AUTO) 299 /CMM (150-450); RDW COEFFICIENT OF VARIATION 12.9 (11.5-15.0); RED BLOOD CELL COUNT(AUTO) 4.79 MIL/uL (4.5-6.0); WHITE BLOOD COUNT (AUTO) 9.1 K/uL (4.3-11.0)
[2018-01-03 22:58] LABS: CALCIUM, SERUM 9.1 mg/dL (8.5-10.1); CARBON DIOXIDE 25 mmol/L (21-32); CHLORIDE 103 mmol/L (98-107); CREATININE 0.7 mg/dL (0.6-1.3); GLUCOSE 99 mg/dL (74-106); POTASSIUM 3.6 mmol/L (3.5-5.1); SODIUM SERUM 139 mmol/L (136-145); UREA NITROGEN, BLOOD 7 mg/dL (7-18)
[2018-01-03] MEDS ORDERED: BLOOD SUGAR DIAGNOSTIC 1 EACH STRIP IN ONE (23:00)
[2018-01-03] MEDS ORDERED: IV NS 0.9% 1,000 ML BAG IV ONE (23:00)
[2018-01-03 23:04] LABS: ACETAMINOPHEN 2 ug/ml (10-30); ALANINE AMINOTRANSFERASE 45 U/L (12-78); ALBUMIN 3.5 g/dL (3.4-5.0); ALCOHOL, BLOOD < 3 mg/dL (0-0); ALKALINE PHOSPHATASE 164 U/L (46-116); ASPARTATE AMINOTRANSFERASE 29 U/L (15-37); BILIRUBIN,DIRECT 0.1 mg/dL (0.0-0.2); BILIRUBIN,TOTAL 0.4 mg/dL (0.2-1.0); TOTAL PROTEIN, SERUM 8.1 g/dL (6.4-8.2)
[2018-01-03 23:05] LABS: SALICYLATE 2.6 mg/dL (2.8-20.0)
--- NOTE | 2018-01-03 23:26 | NUR ---
PT APPEARS TO BE RESTING COMFORTABLY. PT IS ON THE MONITOR AND CONTINUOUS PULSE OX. RESP EVEN AND UNLABORED.
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
== END 2018-01-04 00:44 | disposition left against medical advice (07) ==
LOC: ER 20:30
DX: R45.851 Suicidal ideations (principal); F10.10 Alcohol abuse, uncomplicated; F12.10 Cannabis abuse, uncomplicated; F15.10 Other stimulant abuse, uncomplicated; F11.10 Opioid abuse, uncomplicated; F17.200 Nicotine dependence, unspecified, uncomplicated; Z60.2 Problems related to living alone; Z88.0 Allergy status to penicillin
CPT/HCPCS: 36415; 80048-TC; 80076-TC; 80305; 81000-TC; 82962-TC; 85025-TC; A4606; G0480; Z7610

== ENCOUNTER 2018-01-16 01:29 | Emergency (ER) | payer OTHER ==
--- NOTE | 2018-01-16 01:35 | NUR ---
CALLED PT NAME X 3 IN WR. NO RESPONSE.
--- NOTE | 2018-01-16 01:53 | NUR ---
CALLED PT NAME X 3 IN WR. NO RESPONSE.
--- NOTE | 2018-01-16 02:28 | NUR ---
CALLED PT NAME X3 IN WR. NO RESPONSE. PER ADMITTING PT LEFT.
== END 2018-01-16 02:31 | disposition left against medical advice (07) ==
LOC: ER 01:32
DX: Z53.21 Procedure and treatment not carried out due to patient leaving prior to being seen by health care provider (principal)

== ENCOUNTER 2018-02-01 01:10 | Emergency (ER) | payer OTHER ==
--- NOTE | 2018-02-01 01:30 | NUR ---
CHECKED LOBBY AND BATHROOM; CANT FIND PT
--- NOTE | 2018-02-01 02:00 | NUR ---
NOT IN LOBBY STILL FOR TRIAGE
--- NOTE | 2018-02-01 02:29 | NUR ---
CHECKED LOBBY AND BATHROOM AND PT NOT ANYWHERE
--- NOTE | 2018-02-01 03:11 | NUR ---
INFORMED BY ADMITTING "PT HAS NOT RETURNED TO LOBBY"; NOT EVEN OUTSIDE OF ER
== END 2018-02-01 03:13 | disposition left against medical advice (07) ==
LOC: ER 01:14
DX: Z53.21 Procedure and treatment not carried out due to patient leaving prior to being seen by health care provider (principal)

== ENCOUNTER 2018-03-06 11:49 | Emergency (ER) | payer OTHER ==
[~2018-03-06] VITALS: Ht 172.7 cm; Wt 84.4 kg
[2018-03-06] MEDS ORDERED: PROPOFOL 20 ML IV ONE (12:24)
[2018-03-06] MEDS ORDERED: PROPOFOL 200 MG/20 ML VIAL IV ONE (12:30)
--- NOTE | 2018-03-06 12:57 | NUR ---
IN CUSTODY. OK TO BOOK. R SHOULDER DISLOCATION, NAD NOTED, VSS, RESP EVEN AND UNLABORED, PT WAS PUT MONITOR. AT BS
--- NOTE | 2018-03-06 13:03 | NUR ---
XRAY AT BS
--- NOTE | 2018-03-06 13:44 | NUR ---
PT MEDICALLY CLEARED [employer] UNIT [id number]
[2018-03-06 13:46] VITALS: BP 129/75
== END 2018-03-06 13:48 ==
LOC: ER 11:57
DX: M24.411 Recurrent dislocation, right shoulder (principal); R56.9 Unspecified convulsions; F17.200 Nicotine dependence, unspecified, uncomplicated; F10.10 Alcohol abuse, uncomplicated; F15.10 Other stimulant abuse, uncomplicated; F11.10 Opioid abuse, uncomplicated; W18.39XA Other fall on same level, initial encounter; Z88.0 Allergy status to penicillin; Y93.89 Activity, other specified; Y92.89 Other specified places as the place of occurrence of the external cause; Y99.8 Other external cause status
CPT/HCPCS: 23650; 73030; 99152; 99285; A4606; J2704; J7030; Z7610

== ENCOUNTER 2018-04-02 14:37 | Emergency (ER) | payer OTHER ==
[~2018-04-02] VITALS: Ht 175.3 cm; Wt 76.2 kg
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
--- NOTE | 2018-04-02 14:46 | NUR ---
PT IS ALSO C/O BILATERAL SHOULDER PAIN
[2018-04-02] MEDS ORDERED: LEVETIRACETAM (500MG) 500 MG in IV NS 0.9% 100 ML IV ONE (15:00)
--- NOTE | 2018-04-02 15:30 | NUR ---
RUE 20G IV STARTED WITH VEIN FINDER BY SANDHYA PINEDA/CHG .
--- NOTE | 2018-04-02 15:37 | NUR ---
PT LEFT FOR CT VIA GURNEY WITH SHERIFF Thomas.
[2018-04-02 15:40] LABS: BASOPHILS # (AUTO) 0.1 /CMM (0.0-0.2); BASOPHILS % (AUTO) 1.7 % (0.0-2.0); EOSINOPHILS % (AUTO) 2.8 % (0.0-6.0); HEMATOCRIT 43 % (39-51); HEMOGLOBIN 14.5 g/dL (13.5-17.5); LYMPHOCYTES # (AUTO) 1.7 /CMM (0.8-4.8); LYMPHOCYTES % (AUTO) 28.8 % (20.0-44.0); MEAN CORPUSCULAR HEMOGLOBIN 28 PG (26.0-33.0); MEAN CORPUSCULAR HGB CONC 34 g/dl (31.0-36.0); MEAN CORPUSCULAR VOLUME 83 fL (80-96); MONOCYTES # (AUTO) 0.6 /CMM (0.1-1.30); MONOCYTES % (AUTO) 10.5 % (2.0-12.0); NEUTROPHILS # (AUTO) 3.5 /CMM (1.8-8.9); NEUTROPHILS % (AUTO) 56.2 % (43.0-81.0); PLATELET COUNT (AUTO) 182 /CMM (150-450); RDW COEFFICIENT OF VARIATION 16.9 (11.5-15.0); RED BLOOD CELL COUNT(AUTO) 5.16 MIL/uL (4.5-6.0); WHITE BLOOD COUNT (AUTO) 6.1 K/uL (4.3-11.0)
[2018-04-02 15:54] LABS: INR 0.94 (0.85-1.15)
--- NOTE | 2018-04-02 16:00 | NUR ---
PT RETURNED FROM CT.
--- NOTE | 2018-04-02 16:05 | NUR ---
RELIEF PHARMACIST IS AT THE BEDSIDE FOR BLOOD RE-DRAW.
[2018-04-02] MEDS ORDERED: PROPOFOL 1,000 MG/100 ML BOTTLE IV ONE (17:00)
[2018-04-02] MEDS ORDERED: IV NS 0.9% 1,000 ML BAG IV ONE (17:00)
[2018-04-02] MEDS ORDERED: PROPOFOL 20 ML IV ONE ×2 (17:02→17:23)
--- NOTE | 2018-04-02 17:15 | NUR ---
Jordon vail in ED - 04/02/18 at 2003 by ZANDRA REPORT GIVEN TO SANDHYA HOWARD FOR ROZINA.
--- NOTE | 2018-04-02 17:18 | NUR ---
CONSENT SIGNED FOR BILATERAL SHOULDER CLOSED REDUCTION UNDER MODERATE SEDATION. 1718 - 1L NS INFUSING INTO RUE 20G IV. 1720 - TIME OUT 1725 - 70MG PROPOFOL IVP VIA 20G RUE BY EDWIN, RN BP121/76, HR 99, O2 SAT 100% PT ON NRB MASK SANDHYA PINEDA - RT, DR STARR, MYSELF, SHELL EMT - AT THE BEDSIDE. 1727 - 35MG PROPOFOL IVP VIA 20G RUE - PT NOT SEDATED 1729 - 35MG PROPOFOL IVP VIA 20G RUE- DR STARR REDUCTION IN PROGRESS BP 108/70, HR 97, SAT 100%, RESP 18 1731 - 35MG PROPOFOL IVP GIVEN VIA 20G RUE - BP 108/70, HR 90, O2 SAT 100% 1733 - BP IS 72/33, HR 90, O2 SAT ON NRB MASK 99%. NS RUNNING. HOLDING REDUCTION PT IS STILL AWAKE. 1734 - BP 85/64, HR 88, O2 SAT 98%, PT IS STILL TALKING, NOT SEDATED HOLDING REDUCTION 1737 - BP 94/62 HR 90, 02 SAT 100%. 1743 - BP 103/63, HR 96, RESP 18, 100% O2 ON NRB 1743 - 0.14MG KETAMINE IVP GIVEN RUE 20G 1744 - REDUCING LT SHOULD STOPPED. PT TOO AWAKE 1745 REDUCUTION IN PROGRESS BY DR. STARR - HR 110, BP 103/63, O2 SAT 99% ON NRB 1746 - 0.07ML = 3.5MG KETAMINE IVP VIA RUE 20G. BP 121/71 HR 96, O2 SAT 100% ON NRB, RESP 16 174 - REDUCTION STILL IN PROGRESS. 174 - REDUCTION STOPPED PT IS TOO AWAKE. 174 - RESUMED REDUCTION - L SHOULDER REDUCED AND SLINT IN PLACE 174 - KETAMINE 3.5MG GIVEN VIA 20G RUE IVP -- BP121/71, HR 98, RESP 18, O2 SAT 100% 175 - RT SHOULDER REDUCTION IN PROGRESS HR 111, BP 121/71, RESP 18, O2 SAT 100% ON NRB MASK 175 - KETAMINE 3.5MG IVP VIA 20G RUE. BP 118/96, HR 104, RESP 18, 98% ON NRB MASK REDUCTION STOPPED - 20G RUE IV INFILTRATED. IV REMOVED. 1800 15G IO INSERTED BY DR STARR IN THE RT TIB, + BLOOD RETURN NOTED 1801 - FLUSHED WITH 1MG 2% LIDOCAINE BY DR. STARR BP 137/98, HR 110, RESP 20, O2 SAT 100% NRB MASK 180- FENTANYL 50MCG IVP VIA 15G IO RT TIB 180- HOLDING REDUCTION - PT TOO ALERT/AWAKE 180- BP 146/89, HR 114, RESP 20, O2 SAT 100% ON NRB MASK 180 - ETOMIDATE 7MG, VIA IO RT TIB 180 - FENTANYL 50 MCG IVP VIA IO RT TIB GIVEN BY SANDHYA PINEDA 181 - 7MG ETOMIDATE IVP VIA IO RT TIB. 181 - REDUCTION IN PROGRESS OF RT SHOULDER 181 BP 134/98 HR 118, RESP 20 O2 SAT VIA NRB 99% 181 - STILL REDUCING RT SHOULDER 181- HOLD REDUCTION- PT IS RESISITING, TOO AWAKE. 184 REDUCTION OF RT SHOULD RESUMED 184 - KETAMINE 7MG VIA 10 RT TIB GIVEN BY SANDHYA PINEDA HR 123, BP 126/81, RESP 20, O2 SAT 99% ON NRB 184 RT SHOULDER REDUCED AND SLING APPLIED 1845 - LT SHOULDER POPPED OUT, REDUCTION OF LEFT SHOULDER IN PROGRESS, LT SHOULDER REDUCED AND SLING APPLIED. 1846 - HR 121, BP 126/81, RESP 18, O2 SAT 99% ON NRB MASK 1846 - RT SHOULDER POPPED OUT, REDUCING RT SHOULDER 1847 - RT SHOULDER REDUCED AND SLING APPLIED. 1848 - PT AT BASELINE HR 125, BP 126/81 RESP 18, O2 SAT 100% ON 2L VIA NC. PT IS AA&O X4. PLEASE SEE DR'S ORDER FORM FOR ALL MODERATE SEDATION MEDICATIONS
[2018-04-02] MEDS ORDERED: PROPOFOL 0 ML ONE (17:21)
[2018-04-02] MEDS ORDERED: KETAMINE HCL (500MG/10ML) 50 MG/ML VIAL ONE (17:33)
[2018-04-02] MEDS ORDERED: FENTANYL PF 100MCG/2ML AMPUL ONE (17:56)
[2018-04-02] MEDS ORDERED: LIDOCAINE 2% 20 ML MDV ONE (17:58)
[2018-04-02] MEDS ORDERED: ETOMIDATE 2 MG/ML VIAL ONE (18:05)
--- NOTE | 2018-04-02 18:38 | NUR ---
SEE DR'S ORDER SHEET FOR ORDER.
--- NOTE | 2018-04-02 18:38 | NUR ---
2ND LITER NS INFUSING VIA IO 15G RT TIB
--- NOTE | 2018-04-02 18:48 | NUR ---
BILATERAL SHOULDERS REDUCED AND PT BACK AT BASELINE. IS AWARE. VSS.
--- NOTE | 2018-04-02 18:50 | NUR ---
PT IS AA7O X4. RESP EVEN AND UNLABORED. NO S/S OF PAIN OR DISTRESS NOTED. VSS.
--- NOTE | 2018-04-02 19:15 | NUR ---
REPORT GIVEN TO SANDHYA HOWARD FOR ROZINA.
--- NOTE | 2018-04-02 20:30 | NUR ---
Patient discharged to home in stable condition. Written and verbal after care instructions given. Patient verbalizes understanding of instruction. PT AMBULATORY UPON DC WITH STEADY GAIT. PT IN CUSTODY.
[2018-04-02 20:31] VITALS: BP 148/80
== END 2018-04-02 20:32 ==
LOC: ER 14:39
DX: S43.015A Anterior dislocation of left humerus, initial encounter (principal); S43.014A Anterior dislocation of right humerus, initial encounter; G40.909 Epilepsy, unspecified, not intractable, without status epilepticus; F10.10 Alcohol abuse, uncomplicated; F17.200 Nicotine dependence, unspecified, uncomplicated; F15.10 Other stimulant abuse, uncomplicated; R79.89 Other specified abnormal findings of blood chemistry; Z88.0 Allergy status to penicillin; Z60.2 Problems related to living alone; Y90.9 Presence of alcohol in blood, level not specified; W18.30XA Fall on same level, unspecified, initial encounter; Y93.89 Activity, other specified; Y92.89 Other specified places as the place of occurrence of the external cause; Y99.8 Other external cause status
CPT/HCPCS: 23650; 36415; 36680; 70450; 72125; 73030 ×4; 82962; 85025; 85730; 93005; 96361; 96365; 99152; 99285; A4606; J1953; J2704 ×2; J3010; J3490 ×3; J7030 ×3; Z7610

== ENCOUNTER 2018-12-22 12:22 | Emergency (ER) | payer OTHER ==
[~2018-12-22] VITALS: Ht 175.3 cm; Wt 77.1 kg
--- NOTE | 2018-12-22 12:30 | NUR ---
PT RECEIVED WITH RIGHT ARM DISSLOCATION, REPORTS HAPPENED THIS AM WHEN STRETCHING. HAS HAPPENDED MULTIPLE PREVIOUS TIME. PT WITH .
[2018-12-22] MEDS ORDERED: ETOMIDATE 2 MG/ML VIAL ONE ×2 (12:46→13:02)
[2018-12-22] MEDS ORDERED: ETOMIDATE 2 MG/ML VIAL IV ONE (13:00)
[2018-12-22] MEDS ORDERED: IV NS 0.9% 1,000 ML BAG IV ONE (13:00)
--- NOTE | 2018-12-22 13:30 | NUR ---
PT WITH RT, RNX3, EMT AND MDX2 PRESENT FOR MODERATE SEDATION AND SHOULDER RELOCATION. PROCEDURE WITHOUT INCIDENT AND PT RETURNED TO BASELINE. PT REQUESTING TO CALL SISTER FOR D/C TRANSPORT.
--- NOTE | 2018-12-22 14:00 | NUR ---
PT PREPAPRED FOR D/C PER MD. PT VITALS WNL, RIGHT ARM WITH SLING AND CMS INTACT. PT IVC REMOVED BY FIBERGLASS CONTAINER WINDING OPERATOR GENNER. PT REQUESTING TO LEAVE KEELEY TO WAITING ROOM TO WAIT FOR SISTER FOR TRANSPORT.
[2018-12-22 14:05] VITALS: BP 130/85
== END 2018-12-22 14:06 | disposition home or self-care (01) ==
LOC: ER 12:25
DX: S43.084A Other dislocation of right shoulder joint, initial encounter (principal); F17.200 Nicotine dependence, unspecified, uncomplicated; Z88.0 Allergy status to penicillin; Z60.2 Problems related to living alone; X50.9XXA Other and unspecified overexertion or strenuous movements or postures, initial encounter; Y93.89 Activity, other specified; Y92.89 Other specified places as the place of occurrence of the external cause; Y99.8 Other external cause status
CPT/HCPCS: 23650; 73030 ×2; 99152; 99285; J3490 ×2; J7030; G0500

== ENCOUNTER 2018-12-22 14:56 | Emergency (ER) | payer SELFPAY ==
[~2018-12-22] VITALS: Ht 175.3 cm; Wt 78.5 kg
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
--- NOTE | 2018-12-22 15:08 | NUR ---
PT WANDED BY SECURITY. CLEARED.
[2018-12-22] MEDS ORDERED: OLANZAPINE 5 MG TABLET PO ONE (15:30)
[2018-12-22] MEDS ORDERED: LORAZEPAM INJ 2 MG/ML VIAL IM ONE ×2 (15:30→17:30)
[2018-12-22] MEDS ORDERED: OLANZAPINE 5 MG TABLET ONE (15:36)
[2018-12-22] MEDS ORDERED: LORAZEPAM INJ 2 MG/ML VIAL ONE ×2 (15:36→17:21)
--- NOTE | 2018-12-22 16:29 | NUR ---
PT RELAXING IN BED. PROVIDED DRINKS.
--- NOTE | 2018-12-22 18:00 | NUR ---
PT REPORTING SIGNIFICANT REDUCTION TO PARANOIA AND STARTING TO FEEL 'NORMAL' AGAIN.
--- NOTE | 2018-12-22 18:35 | NUR ---
PT DROPPED USED INSULIN SYRNINGE FROM POCKET, REPORTS HE USED IT THIS AM. DISPOSED OF IN SHARPS. DENIES OTHER ITEMS.
--- NOTE | 2018-12-22 19:16 | NUR ---
ENDORSED CARE TO SANDHYA LEGER.
--- NOTE | 2018-12-22 19:56 | NUR ---
Patient discharged to home in stable condition. Written and verbal after care instructions given. Patient verbalizes understanding of instruction. PT CALLED A FRIEND TO PICK HIM UP. PT AMBULATED TO THE LOBBY WITH A STEADY GAIT TO WAIT FOR P/U. VSS.
[2018-12-22 20:06] VITALS: BP 120/85
== END 2018-12-22 19:56 | disposition home or self-care (01) ==
LOC: ER 15:00
DX: F22 Delusional disorders (principal); F15.10 Other stimulant abuse, uncomplicated; F17.200 Nicotine dependence, unspecified, uncomplicated; Z88.0 Allergy status to penicillin; Z60.2 Problems related to living alone
CPT/HCPCS: 96372 ×2; 99284; J2060 ×2

== ENCOUNTER 2021-07-14 01:19 | Emergency (ER) | payer MEDICAID ==
[~2021-07-14] VITALS: Ht 175.3 cm; Wt 83.9 kg
[2021-07-14] MEDS ORDERED: SILVER SULFADIAZINE CREAM 25 GM TUBE TP ONE (01:30)
[2021-07-14] MEDS ORDERED: MORPHINE SULFATE INJ 2 MG/ML DISP.SYRIN IM ONE (01:30)
[2021-07-14] MEDS ORDERED: IV NS 0.9% 1,000 ML BAG IV ONE (01:30)
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
[2021-07-14] MEDS ORDERED: SILVER SULFADIAZINE CREAM 25 GM TUBE ONE (01:34)
[2021-07-14] MEDS ORDERED: MORPHINE SULFATE INJ 4 MG/ML DISP.SYRIN ONE (01:35)
[2021-07-14 02:08] LABS: BASOPHILS # (AUTO) 0.1 K/uL (0.0-0.2); BASOPHILS % (AUTO) 0.4 % (0.0-2.0); EOSINOPHILS % (AUTO) 0.9 % (0.0-6.0); HEMATOCRIT 48 % (39-51); HEMOGLOBIN 15.8 g/dL (13.5-17.5); LYMPHOCYTES # (AUTO) 2.8 K/uL (0.8-4.8); LYMPHOCYTES % (AUTO) 15.7 % (20.0-44.0); MEAN CORPUSCULAR HGB CONC 33 g/dl (31.0-36.0); MEAN CORPUSCULAR VOLUME 87 fL (80-96); MONOCYTES # (AUTO) 2.2 K/uL (0.1-1.30); MONOCYTES % (AUTO) 12.8 % (2.0-12.0); NEUTROPHILS # (AUTO) 12.3 K/uL (1.8-8.9); NEUTROPHILS % (AUTO) 70.2 % (43.0-81.0); PLATELET COUNT (AUTO) 253 K/uL (150-450); RED BLOOD CELL COUNT(AUTO) 5.49 MIL/uL (4.5-6.0); WHITE BLOOD COUNT (AUTO) 17.5 K/uL (4.3-11.0)
--- NOTE | 2021-07-14 02:10 | NUR ---
DR LYNCH ON THE PHONE W/ [facility] AT [facility]
[2021-07-14 02:26] LABS: CALCIUM, SERUM 8.5 mg/dL (8.5-10.1); CREATININE 1.1 mg/dL (0.6-1.3)
--- NOTE | 2021-07-14 02:33 | NUR ---
Patient refuses initiation of I.V., "I don't want the I.V. right now. I refuse, so can you give me 30 minutes?" notified.
--- NOTE | 2021-07-14 02:52 | NUR ---
MULTIPLE ATTEMPTS TO START AN IV LINE. UNSUCCESSFUL. PT REFUSED FURTHER ATTEMPTS , VERBALY ABUSIVE.
[2021-07-14] MEDS ORDERED: HYDROCODONE/APAP 5/325MG TABLET PO ONE (03:00)
--- NOTE | 2021-07-14 03:12 | NUR ---
Patient refused to have treatment provided around the buttocks area. Md notified.
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
[2021-07-14 03:42] VITALS: BP 128/95
== END 2021-07-14 03:59 | disposition home or self-care (01) ==
LOC: ER 01:25
DX: T24.202A Burn of second degree of unspecified site of left lower limb, except ankle and foot, initial encounter (principal); T24.291A Burn of second degree of multiple sites of right lower limb, except ankle and foot, initial encounter; T21.24XA Burn of second degree of lower back, initial encounter; T22.212A Burn of second degree of left forearm, initial encounter; T22.211A Burn of second degree of right forearm, initial encounter; X03.3XXA Fall due to controlled fire, not in building or structure, initial encounter; Y93.89 Activity, other specified; Y92.833 Campsite as the place of occurrence of the external cause; T20.20XA Burn of second degree of head, face, and neck, unspecified site, initial encounter; T24.111A Burn of first degree of right thigh, initial encounter; Z20.822 Contact with and (suspected) exposure to COVID-19; R03.0 Elevated blood-pressure reading, without diagnosis of hypertension; F15.10 Other stimulant abuse, uncomplicated; F11.10 Opioid abuse, uncomplicated
CPT/HCPCS: 16025; 36415; 80048; 85025; 85730; 87426; 96372; 99283; A4217; C9803; J2270

== ENCOUNTER 2023-06-08 02:45 | Emergency (ER) | payer MEDICAID ==
[~2023-06-08] VITALS: Ht 170.2 cm; Wt 76.7 kg
[2023-06-08 04:00] VITALS: BP 129/89; TEMP 98.1; O2SAT 98
== END 2023-06-08 04:00 | disposition home or self-care (01) ==
LOC: ER 02:55
DX: M25.511 Pain in right shoulder (principal); F17.200 Nicotine dependence, unspecified, uncomplicated; Z60.2 Problems related to living alone; Z88.0 Allergy status to penicillin
CPT/HCPCS: 73030-TC